=== PATIENT | male | born 1965 | race Hispanic/Latino ===

== ENCOUNTER 2021-03-17 10:57 | Outpatient (CLI) | payer OTHER | END 2021-03-17 10:58 | disposition home or self-care (01) | LOC: BICRAD 10:57 | PROVIDERS: ATTEND Internal Medicine Rheumatology | DX: M46.1 Sacroiliitis, not elsewhere classified (principal); M53.3 Sacrococcygeal disorders, not elsewhere classified | CPT/HCPCS: 72202 ==

== ENCOUNTER 2023-12-10 09:20 | Outpatient (CLI) | payer OTHER | END 2023-12-10 09:21 | disposition home or self-care (01) | LOC: BICMRI 09:20 | PROVIDERS: ATTEND Internal Medicine Rheumatology | DX: S46.011A Strain of muscle(s) and tendon(s) of the rotator cuff of right shoulder, initial encounter (principal); M17.0 Bilateral primary osteoarthritis of knee; M75.81 Other shoulder lesions, right shoulder; S43.431A Superior glenoid labrum lesion of right shoulder, initial encounter; S46.811A Strain of other muscles, fascia and tendons at shoulder and upper arm level, right arm, initial encounter ==